=== PATIENT | male | born 1990 | race Two or more races ===

== ENCOUNTER 2020-06-02 10:48 | Emergency (ER) | payer MEDICAID, OTHER ==
[~2020-06-02] VITALS: Ht 175.3 cm; Wt 65.8 kg
[2020-06-02 11:45] VITALS: BP 150/99
== END 2020-06-02 13:46 | disposition home or self-care (01) ==
LOC: ER 10:48
DX: R09.89 Other specified symptoms and signs involving the circulatory and respiratory systems (principal); R07.0 Pain in throat; M54.2 Cervicalgia
CPT/HCPCS: 70490